=== PATIENT | male | born 1990 | race Caucasian/White ===

== ENCOUNTER 2017-12-07 18:20 | Emergency (ER) | payer SELFPAY ==
[~2017-12-07] VITALS: Ht 177.8 cm; Wt 75.0 kg
[~2017-12-07 18:20] MED LIST: ALBU8.5H8 IH
[2017-12-07 18:42] VITALS: BP 149/81
[2017-12-07] MEDS ORDERED: ALBU8HFA PO (19:27)
== END 2017-12-07 19:45 | disposition home or self-care (01) ==
LOC: ER 18:20
DX: J20.9 Acute bronchitis, unspecified (principal); J98.8 Other specified respiratory disorders; F17.200 Nicotine dependence, unspecified, uncomplicated
CPT/HCPCS: 99283

== ENCOUNTER 2018-12-23 18:23 | Emergency (ER) | payer OTHER ==
[~2018-12-23] VITALS: Ht 177.8 cm; Wt 70.0 kg
[2018-12-23 18:50] VITALS: BP 128/79
== END 2018-12-23 22:28 | disposition home or self-care (01) ==
LOC: ER 18:24
DX: S61.012A Laceration without foreign body of left thumb without damage to nail, initial encounter (principal); J45.909 Unspecified asthma, uncomplicated; Z79.899 Other long term (current) drug therapy; X58.XXXA Exposure to other specified factors, initial encounter; Y93.B3 Activity, free weights; Y92.89 Other specified places as the place of occurrence of the external cause; Y99.8 Other external cause status
CPT/HCPCS: 12001; 73130; 99283

== ENCOUNTER 2023-12-11 00:19 | Emergency (ER) | payer MEDICAID ==
[~2023-12-11] VITALS: Ht 177.8 cm; Wt 75.0 kg
[~2023-12-11 00:19] MED LIST changes: +ALBU8.5H17 IH; -ALBU8.5H8 IH
[2023-12-11 00:28] VITALS: BP 132/115; PULSE 102; RESP 18; TEMP 97.9; O2SAT 98
[2023-12-11] MEDS: amox tr/potassium clavulanate 875/125mg TAB PO ONE (00:40)
[2023-12-11] MEDS: bacitracin 15gm ointment TP ONE (00:40)
[2023-12-11] MEDS: ondansetron 4mg rapidly disintigrating tab PO ONE (00:40)
[2023-12-11] MEDS ORDERED: AMOX-115 PO (00:44)
== END 2023-12-11 01:47 ==
LOC: ER 00:20
DX: S46.222A Laceration of muscle, fascia and tendon of other parts of biceps, left arm, initial encounter (principal); J45.909 Unspecified asthma, uncomplicated; Z79.2 Long term (current) use of antibiotics; W54.0XXA Bitten by dog, initial encounter; Y93.89 Activity, other specified; Y92.89 Other specified places as the place of occurrence of the external cause; Y99.8 Other external cause status
CPT/HCPCS: 12002; 73030; 99284